=== PATIENT | female | born 1975 | race Caucasian/White ===

== ENCOUNTER 2019-06-14 21:02 | Emergency (ER) | payer BC ==
[~2019-06-14] VITALS: Ht 157.5 cm; Wt 67.2 kg
[2019-06-14] MEDS ORDERED: IV NORMAL SALINE 1,000ML 1,000 ML IV SCH (21:36)
--- NOTE | 2019-06-14 21:42 | PHYS DOC ---
Adult General Chief Complaint Chief Complaint: ABDOMINAL PAIN HPI HPI Patient is a 43-year-old female who presents with complaint of right upper quadrant abdominal pain that started last Friday. Patient states that pain is progressively getting worse and is currently about a 6 out of 10. She states that she's been having some nausea today but no vomiting. She is not aware of anything that really worsens or improves her symptoms. She denies any diarrhea. She describes pain as sharp in nature. She does indicate the pain radiates into her back.[] Review of Systems Review of Systems Constitutional: Denies fever or chills [] Respiratory: Denies cough or shortness of breath [] Cardiovascular: No additional information not addressed in HPI [] GI: Complains of right upper quadrant abdominal pain without vomiting or diarr hea [] Integument: Denies rash or skin lesions [] Neurologic: Denies headache, focal weakness or sensory changes [] All other systems were reviewed and found to be within normal limits, except as documented in this note. Current Medications Current Medications Current Medications Medications (Trade) Dose Ordered Sig/[facility] Start Time Stop Time Status Last Admin Dose Admin Hydromorphone HCl (Dilaudid) 0.5 mg PRN Q15MIN PRN 06/14/19 21:45 06/15/19 21:44 UNV Ondansetron HCl (Zofran) 4 mg 1X ONCE 06/14/19 21:45 06/14/19 21:46 UNV Sodium Chloride 1,000 ml @ 1,000 mls/hr Q1H 06/14/19 21:36 06/14/19 22:35 UNV Physical Exam Physical Exam Constitutional: Well developed, well nourished, no acute distress, non-toxic appearance. [] HENT: Normocephalic, atraumatic, bilateral external ears normal, oropharynx moist, no oral exudates, nose normal. [] Eyes: PERRLA, EOMI, conjunctiva normal, no discharge. [] Neck: Normal range of motion, no tenderness, supple, no stridor. [] Cardiovascular: Regular rate and rhythm[] Lungs & Thorax: Bilateral breath sounds clear to auscultation [] Abdomen: Bowel sounds normal, soft, no tenderness. [] Skin: Warm, dry, no erythema, no rash. [] Extremities: No tenderness, no cyanosis, no clubbing, ROM intact, no edema. [] Neurologic: Alert and oriented X 3, no focal deficits noted. [] EKG EKG [] Radiology/Procedures Radiology/Procedures [] Impressions: PROCEDURE: ABDOMEN LTD ABDOMEN LTD History: Right upper quadrant pain Comparison: None. Technique: Transabdominal ultrasound images are obtained of the right upper quadrant. Findings: Visualized pancreas is unremarkable. Liver is normal in echogenicity. Right hepatic lobe measures 16.6 cm. Portal flow is hepatopedal. Cholelithiasis. Mild gallbladder wall thickening measures up to 4 mm. No pericholecystic fluid. Negative sonographic Tristan sign. Common bile duct caliber is normal measuring 5 mm in diameter. The right kidney measures 10.2 x 4.3 x 3.1 cm in length and is without evidence of obstruction or stone. Visualized portions of the aorta and IVC have normal caliber. IMPRESSION: 1. Cholelithiasis with mild gallbladder wall thickening. Negative sonographic Tristan sign. Findings are equivocal for acute cholecystitis. HIDA scan can further evaluate for gallbladder function if indicated. Electronically signed by: Ally Tello DO (06/14/2019 11:06 PM) [facility] DICTATED AND SIGNED BY: ALLY TELLO DO DATE: 06/14/192305 CC: JOHANNA MEDINA Jr., DO; PCP,UNKNOWN ~ Course & Med Decision Making Course & Med Decision Making Pertinent Labs and Imaging studies reviewed. (See chart for details) [] Dragon Disclaimer Dragon Disclaimer This electronic medical record was generated, in whole or in part, using a voice recognition dictation system. Departure Departure: Impression: Primary Impression: Cholecystitis with cholelithiasis Disposition: XFER [facility] Admitting Physician: Tiffanie Abarca Condition: IMPROVED Referrals: PCP,UNKNOWN (PCP) Problem Qualifiers Primary Impression: Cholecystitis with cholelithiasis Cholelithiasis location: gallbladder Cholecystitis acuity: acute Biliary obstruction: without biliary obstruction Qualified Codes: K80.00 - Calculus of gallbladder with acute cholecystitis without obstruction JOHANNA MEDINA Jr., DO Jun 14, 2019 21:42
[2019-06-14] MEDS ORDERED: ONDANSETRON PF 4 MG/2 ML VIAL. IVP ONE (21:45)
[2019-06-14] MEDS: HYDROmorphone PF 1 MG/ML DISP.SYRIN IV/SQ PRN ×3 (21:48→23:45)
[2019-06-14 22:01] LABS: BASO # 0.1 x10^3/uL (0.0-0.2); BASO % 1 % (0-3); EOS # 0.1 x10^3/uL (0.0-0.7); EOS % 2 % (0-3); HEMATOCRIT 40.8 % (36.0-47.0); HEMOGLOBIN 13.9 g/dL (12.0-15.5); LYMPH # 2.6 x10^3/uL (1.0-4.8); LYMPH % 38 % (24-48); MEAN CORPUSCULAR HEMOGLOBIN 31 pg (25-35); MEAN CORPUSCULAR HGB CONC 34 g/dL (31-37); MEAN CORPUSCULAR VOLUME 90 fL (79-100); MONO # 0.7 x10^3/uL (0.0-1.1); MONO % 10 % (0-9); NEUT # 3.4 x10^3uL (1.8-7.7); NEUT % 50 % (31-73); PLATELET COUNT 211 x10^3/uL (140-400); RED BLOOD COUNT 4.54 x10^6/uL (3.50-5.40); RED CELL DISTRIBUTION WIDTH 13.5 % (11.5-14.5); WHITE BLOOD COUNT 6.9 x10^3/uL (4.0-11.0)
[2019-06-14 22:15] LABS: ALBUMIN 4.1 g/dL (3.4-5.0); ALBUMIN/GLOBULIN RATIO 1.3 (1.0-1.7); CALCIUM 8.9 mg/dL (8.5-10.1); CREATININE 0.9 mg/dL (0.6-1.0); GFR 68.7; POTASSIUM 3.6 mmol/L (3.5-5.1); TOTAL BILIRUBIN 0.4 mg/dL (0.2-1.0); TOTAL PROTEIN 7.2 g/dL (6.4-8.2)
[2019-06-14 22:19] LABS: COLOR,URINE YELLOW
[2019-06-14 22:20] LABS: BACTERIA,URINE FEW /HPF (0-FEW); BILIRUBIN,URINE NEG (NEG); CLARITY,URINE CLEAR; GLUCOSE,URINE NEG (NEG); NITRITE,URINE NEG (NEG); SQUAMOUS EPITHELIAL CELL,UR FEW /LPF; UROBILINOGEN,URINE 0.2 mg/dL (0.2 mg/dL)
--- NOTE | 2019-06-14 23:09 | RAD ---
ABDOMEN LTD History: Right upper quadrant pain Comparison: None. Technique: Transabdominal ultrasound images are obtained of the right upper quadrant. Findings: Visualized pancreas is unremarkable. Liver is normal in echogenicity. Right hepatic lobe measures 16.6 cm. Portal flow is hepatopedal. Cholelithiasis. Mild gallbladder wall thickening measures up to 4 mm. No pericholecystic fluid. Negative sonographic Tristan sign. Common bile duct caliber is normal measuring 5 mm in diameter. The right kidney measures 10.2 x 4.3 x 3.1 cm in length and is without evidence of obstruction or stone. Visualized portions of the aorta and IVC have normal caliber. IMPRESSION: 1. Cholelithiasis with mild gallbladder wall thickening. Negative sonographic Tristan sign. Findings are equivocal for acute cholecystitis. HIDA scan can further evaluate for gallbladder function if indicated. Electronically signed by: Manuel Tello DO (06/14/2019 11:06 PM) [facility]
[2019-06-14] MEDS ORDERED: IV NORMAL SALINE 100ML 100 ML ONE (23:30)
[2019-06-15 00:38] VITALS: BP 91/50
== END 2019-06-15 01:26 | disposition short-term general hospital (02) ==
LOC: ER 21:02
DX: K80.00 Calculus of gallbladder with acute cholecystitis without obstruction (principal)
CPT/HCPCS: 36415; 76705; 80053; 81001; 83690; 85025; 96365; 96367; 96375; 96376; 99285; J0696; J1170; J2405; J3490; 96366; J7030

== ENCOUNTER 2019-06-28 04:24 | Emergency (ER) | payer BC ==
[~2019-06-28] VITALS: Ht 157.5 cm; Wt 67.2 kg
--- NOTE | 2019-06-28 04:29 | PHYS DOC ---
Past History Past Medical History: No Pertinent History, Gallstones (CANDIS PRADO MD) Past Surgical History: Cholecystectomy, Hysterectomy (CANDIS PRADO MD) Alcohol Use: None Drug Use: None (CANDIS PRADO MD) Adult General Chief Complaint Chief Complaint: ".. I had a bad gall bladder.. so I got surgery at [facility].. back on 06/15,,.. but I still having pain .. I went back to [place] on .. they gave me a GI cocktail.. but the pain is still going on.. I want to go on vaccation.. but this pain is still in same place... " HPI HPI Patient is a 43 year old female who presents with above hx and complaints of abdomen pain. Pt. history of biliary colic resulting in cholecystectomy on 06/15/2019. Patient continue to have right upper epigastric pain and was reevaluated [facility] on 06/17/2019. At that time she was treated with GI cocktail with some mild relief. Patient denies any history of dark or tarry stools. Patient never had EGD. No recent travel. No significant ill contacts. No history immunosuppression. (CANDIS PRADO MD) Review of Systems Review of Systems Constitutional: Denies fever or chills [] Eyes: Denies change in visual acuity, redness, or eye pain [] HENT: Denies nasal congestion or sore throat [] Respiratory: Denies cough or shortness of breath [] Cardiovascular: No additional information not addressed in HPI [] GI: Complaints of right upper quadrant and epigastric abdominal pain,. Denies nausea, vomiting, bloody stools or diarrhea [] : Denies dysuria or hematuria [] Musculoskeletal: Denies back pain or joint pain [] Integument: Denies rash or skin lesions [] Neurologic: Denies headache, focal weakness or sensory changes [] Endocrine: Denies polyuria or polydipsia [] All other systems were reviewed and found to be within normal limits, except as documented in this note. (CANDIS PRADO MD) Family History Family History Noncontributory (CANDIS PRADO MD) Current Medications Current Medications See nursing for home meds (CANDIS PRADO MD) Allergies Allergies Allergies Coded Allergies Type Severity Reaction Last Updated Verified Sulfa (Sulfonamide Antibiotics) Allergy Intermediate 06/14/19 Yes Penicillins Allergy Unknown 06/14/19 Yes (CANDIS PRADO MD) Physical Exam Physical Exam Constitutional: Moderately acute distress, non-toxic appearance. [] HENT: Normocephalic, atraumatic, bilateral external ears normal, oropharynx moist, no oral exudates, nose normal. []Red hair Eyes: PERRLA, EOMI, conjunctiva normal, no discharge. [] Neck: Normal range of motion, no tenderness, supple, no stridor. [] Cardiovascular:Heart rate regular rhythm, no murmur [] Lungs & Thorax: Bilateral breath sounds equal apex on auscultation [] Abdomen: Bowel sounds normal, soft, epigastric and right upper quadrant tenderness, no masses, no pulsatile masses. [] Rebound to right upper quadrant and epigastric area. Surgical lines are healing well. Patient declines rectal exam this time. No history of tarry stools Skin: Warm, dry, no erythema, no rash. [] Back: No tenderness, no CVA tenderness. [] Extremities: No tenderness, no cyanosis, no clubbing, ROM intact, no edema. [No cording appreciated] no psoas sign. Neurologic: Alert and oriented X 3, normal motor function, normal sensory function, no focal deficits noted. [] Psychologic: Affect anxious, judgement normal, mood normal. [] (CANDIS PRADO MD) EKG EKG My interpretation of of EKG shows a sinus rhythm at 76 bpm no findings acute STEMI with contralateral changes.[] (CANDIS PRADO MD) Radiology/Procedures Radiology/Procedures CT pending at shift change[][place] [address] IMAGING REPORT Signed PATIENT: DAIN FONTENOT ACCOUNT: [id number] : 1975 LOCATION: ER AGE: 43 SEX: F EXAM STATUS: REG ER ORD. PHYSICIAN: CANDIS PRADO MD REASON: pain, hx cholecystetomy 06/15-still pain, DRINKING AT 0550 PROCEDURE: CT ABD PELV W/ORAL&IV CONTRAST CT abdomen and pelvis with contrast PQRS statement: CT scans at this facility use dose reduction including either automated exposure control, iterative reconstructions, and /or weight based radiation dosing via mA and kV modification when appropriate to reduce radiation dose to as low as reasonably achievable. HISTORY: Abdominal pain. Status post cholecystectomy. TECHNIQUE: Helical CT imaging abdomen and pelvis with oral contrast and 75 mL Omnipaque 300 intravenous contrast. Abdomen findings: There is biliary ductal dilation common bile duct diameter approximately 10 mm, typical after cholecystectomy. Bilateral renal calculi. Subcentimeter hypodensity right renal midpole too small to characterize due to volume averaging. Left renal 1.2 cm fluid density cyst density of 17 units. Spleen, adrenals, pancreas, liver unremarkable. Moderate volume of stool. No bowel obstruction. Appendix not visualized could be surgically absent. No adenopathy. No abdominal free fluid. Lower lumbar disc disease. Lung bases unremarkable. Pelvis findings: Hysterectomy. There is a small volume of fluid within the pelvis at the cul-de-sac and along and small bowel loops and rectosigmoid colon and posterior dome of the bladder. 2 cm thick rim-enhancing hypodense lesion left ovary. Right ovary, bladder, rectum and bones are unremarkable. IMPRESSION: 1. Mild biliary ductal dilation typical after cholecystectomy with a common bile duct diameter of approximately 10 mm. If there is clinical suspicion of bile duct obstruction contributing to dilation, MRCP could further assess for choledocholithiasis. No perihepatic fluid collections to suggest abscess or biloma. 2. Small volume of pelvic free fluid. This is associated with a 2 cm rim-enhancing left ovarian lesion which may be a dominant follicle or ruptured cyst. 3. Nonobstructing renal calculi. Electronically signed by: Gt Ruiz MD (06/28/2019 7:39 AM) [facility] DICTATED AND SIGNED BY: GT RUIZ MD DATE: 06/28/19 0739 CC: CANDIS PRADO MD; PCP,UNKNOWN ~ (CANDIS PRADO MD) Impressions: PROCEDURE: CT ABD PELV W/ORAL&IV CONTRAST CT abdomen and pelvis with contrast PQRS statement: CT scans at this facility use dose reduction including either automated exposure control, iterative reconstructions, and /or weight based radiation dosing via mA and kV modification when appropriate to reduce radiation dose to as low as reasonably achievable. HISTORY: Abdominal pain. Status post cholecystectomy. TECHNIQUE: Helical CT imaging abdomen and pelvis with oral contrast and 75 mL Omnipaque 300 intravenous contrast. Abdomen findings: There is biliary ductal dilation common bile duct diameter approximately 10 mm, typical after cholecystectomy. Bilateral renal calculi. Subcentimeter hypodensity right renal midpole too small to characterize due to volume averaging. Left renal 1.2 cm fluid density cyst density of 17 units. Spleen, adrenals, pancreas, liver unremarkable. Moderate volume of stool. No bowel obstruction. Appendix not visualized could be surgically absent. No adenopathy. No abdominal free fluid. Lower lumbar disc disease. Lung bases unremarkable. Pelvis findings: Hysterectomy. There is a small volume of fluid within the pelvis at the cul-de-sac and along and small bowel loops and rectosigmoid colon and posterior dome of the bladder. 2 cm thick rim-enhancing hypodense lesion left ovary. Right ovary, bladder, rectum and bones are unremarkable. IMPRESSION: 1. Mild biliary ductal dilation typical after cholecystectomy with a common bile duct diameter of approximately 10 mm. If there is clinical suspicion of bile duct obstruction contributing to dilation, MRCP could further assess for choledocholithiasis. No perihepatic fluid collections to suggest abscess or biloma. 2. Small volume of pelvic free fluid. This is associated with a 2 cm rim-enhancing left ovarian lesion which may be a dominant follicle or ruptured cyst. 3. Nonobstructing renal calculi. Electronically signed by: Gt Ruzi MD (06/28/2019 7:39 AM) [facility] (JOHANNA WILLOUGHBY Jr. DO) Course & Med Decision Making Course & Med Decision Making Pertinent Labs and Imaging studies reviewed. (See chart for details) Indoors patient at shift change to Dr. Willoughby- he will make disposition of patient if CT result not available at shift change. Pt. declines transfer to [facility]. Patient declined pain meds. Pt. stay on a clear fluid diet for the next 2 days. No NSAIDs. Patient take Zantac 300 mg twice a day. Patient take Carafate 1 g 4 times a day. If further discomfort must consider presentation to [facility] and possible admission. Patient encouraged not to go on vacation if still having pain later this week. Patient take milk of magnesia 30 mL daily if taking narcotics. Patient given a short prescription for Percocet 30 tablets may take up to 4 times a day.. She may take Tylenol for pain. Suspect patient has a component of gastritis-and recommended she consider EGD. Would suspect bilirubin be elevated if she has a stone or bile duct obstruction, however explained to patient she may need an ERCP to evaluate the common duct. Patient currently requesting discharge. Impression: 1. Abdomen Pain- Rt upper quadrant and epigastric 2. Hx. cholecystectomy on 2018 for acute cholecystitis 3. Gastritis [] (CANDIS PRADO MD) Dragon Disclaimer Dragon Disclaimer This electronic medical record was generated, in whole or in part, using a voice recognition dictation system. (CANDIS PRADO MD) Departure Departure: Disposition: HOME/RESIDENCE PRIOR TO ADM Condition: STABLE Referrals: PCP,UNKNOWN (PCP) Scripts Oxycodone HCl/Acetaminophen (Percocet 5-325 mg Tablet) 1 Each Tablet 1 TAB PO PRN QID PRN for PAIN MDD 4 Tablet(s) for 5 Days, #30 TAB 0 Refills Prov: CANDIS PRADO MD 06/28/19 Sucralfate (CARAFATE) 1 Gm Tablet 1 GM PO QID for GASTRITIS for 30 Days, #120 TAB Prov: CANDIS PRADO MD 06/28/19 Ranitidine Hcl (ZANTAC) 150 Mg Tablet 300 MG PO BID for GASTRITIS for 30 Days, #120 TAB Prov: CANDIS PRADO MD 06/28/19 Dragon Disclaimer This chart was dictated in whole or in part using Voice Recognition software in a busy, high-work load, and often noisy Emergency Department environment. It may contain unintended and wholly unrecognized errors or omissions. (CANDIS PRADO MD) CANDIS PRADO MD Jun 28, 2019 04:29 JOHANNA WILLOUGHBY Jr. DO Jun 28, 2019 07:50
--- NOTE | 2019-06-28 04:57 | EKG ---
[address] [address] Test Date: 2019-06-28 Test Time: 04:43:55 Pat Name: DAIN FONTENOT Department: Room: Gender: F Central Supply Clerk: : 1975 Requested By: CANDIS PRADO Order Number: [id number] Reading MD: Ji Beckham Measurements Intervals [place] Rate: 76 P: 49 TN: 122 QRS: 51 QRSD: 80 T: 26 QT: 378 QTc: 430 Interpretive Statements SINUS RHYTHM Electronically Signed On 06-28-2019 13:51:10 DELIVERY RN by Ji Beckham
[2019-06-28] MEDS ORDERED: FAMOTIDINE 20 MG/2 ML VIAL IVP ONE (05:00)
[2019-06-28] MEDS ORDERED: KETOROLAC 30 MG/ML VIAL. IVP ONE (05:00)
[2019-06-28] MEDS ORDERED: ONDANSETRON PF 4 MG/2 ML VIAL. IVP ONE (05:00)
[2019-06-28] MEDS ORDERED: IV RINGERS SOLUTION,LACTATED 1,000 ML IV SCH (05:00)
[2019-06-28] MEDS ORDERED: CONTRAST GIVEN MC PRN (05:15)
[2019-06-28 05:30] LABS: BASO # 0.1 x10^3/uL (0.0-0.2); BASO % 1 % (0-3); EOS # 0.1 x10^3/uL (0.0-0.7); EOS % 2 % (0-3); HEMATOCRIT 42.3 % (36.0-47.0); HEMOGLOBIN 14.3 g/dL (12.0-15.5); LYMPH # 2.2 x10^3/uL (1.0-4.8); LYMPH % 29 % (24-48); MEAN CORPUSCULAR HEMOGLOBIN 30 pg (25-35); MEAN CORPUSCULAR HGB CONC 34 g/dL (31-37); MEAN CORPUSCULAR VOLUME 90 fL (79-100); MONO # 0.6 x10^3/uL (0.0-1.1); MONO % 8 % (0-9); NEUT # 4.6 x10^3uL (1.8-7.7); NEUT % 61 % (31-73); PLATELET COUNT 218 x10^3/uL (140-400); RED BLOOD COUNT 4.71 x10^6/uL (3.50-5.40); RED CELL DISTRIBUTION WIDTH 13.2 % (11.5-14.5); WHITE BLOOD COUNT 7.6 x10^3/uL (4.0-11.0)
[2019-06-28] MEDS ORDERED: IOHEXOL 300 MG/ML 75 ML VIAL. IV ONE (05:30)
[2019-06-28] MEDS ORDERED: IOHEXOL 240 MG/ML 50ML VIAL. PO ONE (05:30)
[2019-06-28 05:41] LABS: BACTERIA,URINE 0 /HPF (0-FEW); BARBITURATES NEG (NEG); BENZODIAZEPINES NEG (NEG); BILIRUBIN,URINE NEG (NEG); CANNABINOIDS NEG (NEG); CLARITY,URINE CLEAR; COCAINE NEG (NEG); COLOR,URINE YELLOW; GLUCOSE,URINE NEG (NEG); METHADONE NEG (NEG); NITRITE,URINE NEG (NEG); OPIATES NEG (NEG); PHENCYCLIDINE NEG (NEG); RBC,URINE 0 /HPF (0-2); SQUAMOUS EPITHELIAL CELL,UR OCC /LPF; UROBILINOGEN,URINE 0.2 mg/dL (0.2 mg/dL); WBC,URINE OCC /HPF (0-4)
[2019-06-28 05:43] LABS: ALBUMIN 3.7 g/dL (3.4-5.0); CALCIUM 8.9 mg/dL (8.5-10.1); CREATININE 0.9 mg/dL (0.6-1.0); DIRECT BILIRUBIN 0.1 mg/dL (0.0-0.2); GFR 68.7; POTASSIUM 4.2 mmol/L (3.5-5.1); TOTAL BILIRUBIN 0.5 mg/dL (0.2-1.0); TOTAL PROTEIN 7.1 g/dL (6.4-8.2)
[2019-06-28 05:47] LABS: AMPHETAMINE/METHAMPHETAMINE NEG (NEG)
[2019-06-28] MEDS ORDERED: MAGNESIUM HYDROXIDE 2,400 MG/30 ML ORAL.SUSP. PO ONE (06:00)
[2019-06-28] MEDS ORDERED: SUCRALFATE 1 GM TABLET. PO ONE (06:00)
[2019-06-28] MEDS ORDERED: MORPHINE SULFATE 10 MG/ML SYRINGE. SQ ONE (06:30)
--- NOTE | 2019-06-28 07:42 | RAD ---
CT abdomen and pelvis with contrast PQRS statement: CT scans at this facility use dose reduction including either automated exposure control, iterative reconstructions, and /or weight based radiation dosing via mA and kV modification when appropriate to reduce radiation dose to as low as reasonably achievable. HISTORY: Abdominal pain. Status post cholecystectomy. TECHNIQUE: Helical CT imaging abdomen and pelvis with oral contrast and 75 mL Omnipaque 300 intravenous contrast. Abdomen findings: There is biliary ductal dilation common bile duct diameter approximately 10 mm, typical after cholecystectomy. Bilateral renal calculi. Subcentimeter hypodensity right renal midpole too small to characterize due to volume averaging. Left renal 1.2 cm fluid density cyst density of 17 units. Spleen, adrenals, pancreas, liver unremarkable. Moderate volume of stool. No bowel obstruction. Appendix not visualized could be surgically absent. No adenopathy. No abdominal free fluid. Lower lumbar disc disease. Lung bases unremarkable. Pelvis findings: Hysterectomy. There is a small volume of fluid within the pelvis at the cul-de-sac and along and small bowel loops and rectosigmoid colon and posterior dome of the bladder. 2 cm thick rim-enhancing hypodense lesion left ovary. Right ovary, bladder, rectum and bones are unremarkable. IMPRESSION: 1. Mild biliary ductal dilation typical after cholecystectomy with a common bile duct diameter of approximately 10 mm. If there is clinical suspicion of bile duct obstruction contributing to dilation, MRCP could further assess for choledocholithiasis. No perihepatic fluid collections to suggest abscess or biloma. 2. Small volume of pelvic free fluid. This is associated with a 2 cm rim-enhancing left ovarian lesion which may be a dominant follicle or ruptured cyst. 3. Nonobstructing renal calculi. Electronically signed by: Sebastian Ruiz MD (06/28/2019 7:39 AM) [facility]
[2019-06-28] MEDS ORDERED: LIDO:MAALOX 1:1 20 ML SINGLE DOSE. ONE (07:57)
--- NOTE | 2019-06-28 08:10 | RAD ---
Study: ACUTE ABDOMEN SERIES Indication: Recent cholecystectomy. Ongoing pain. Comparison: Same day CT abdomen/pelvis Findings: Unremarkable cardiomediastinal silhouette and alejo. The lung [place] are clear. Cholecystectomy clips. Mild to moderate well-formed stool burden. Nonobstructive bowel gas pattern. No free air identified. Impression: Nonobstructive bowel gas pattern. Mild to moderate well-formed stool burden scattered throughout the colon. Electronically signed by: JON SOMMERS MD (06/28/2019 8:07 AM) [facility]
[2019-06-28] MEDS ORDERED: OXYC-325 PO (08:13)
[2019-06-28] MEDS ORDERED: RANI-376 PO (08:13)
[2019-06-28] MEDS ORDERED: SUCR1TAB35 PO (08:13)
[2019-06-28] MEDS ORDERED: LIDO:MAALOX 1:1 20 ML SINGLE DOSE. PO ONE (08:15)
[2019-06-28 08:24] VITALS: BP 110/72
== END 2019-06-28 08:27 | disposition home or self-care (01) ==
LOC: ER 04:24
DX: K29.70 Gastritis, unspecified, without bleeding (principal); Z90.49 Acquired absence of other specified parts of digestive tract; Z90.710 Acquired absence of both cervix and uterus; Z88.2 Allergy status to sulfonamides; Z88.0 Allergy status to penicillin
CPT/HCPCS: 36415; 74022; 74177; 80048; 80076; 80307; 81001; 81025; 82150; 83690; 84484; 85025; 85610; 85730; 93005; 96361; 96374; 96375; 99285; J1885; J2405; J3490; J7120; Q9966; Q9967